=== PATIENT | male | born 1955 | race Caucasian/White ===

== ENCOUNTER 2016-09-08 19:28 | Emergency (ER) | payer OTHER ==
[~2016-09-08] VITALS: Ht 188 cm; Wt 102.0 kg
[2016-09-08 19:31] VITALS: BP 152/88; PULSE 84; RESP 16; O2SAT 96
--- NOTE | 2016-09-08 21:59 | ED.REPORT ---
HPI-Dizziness / Weakness Date of Service Sep 08, 2016 ED Provider: Dr. Kapoor 61 year old male with a hx of HTN and current every day smoker presents with dizziness since yesterday. He started to feel dizzy last night while playing [employer]ING[employer]. The dizziness has been exacerbated with standing up since yesterday, but is still present at rest. His spouse states he was pale, but denies diaphoresis. He also reports associated mild nausea and blurred vision. The patient has had a lingering cough from a URI a few weeks ago. He denies palpitations, CP, fatigue, "stars in vision" and changes in appetite. Nursing Notes Stated Complaint: DIZZINESS Chief Complaint: General Complaint Nursing Notes Reviewed: Yes Allergies: Coded Allergies: No Known Allergies (Unverified Allergy, Unknown, 06/19/14) General Time Seen by MD: 21:58 Chief Complaint Dizzy Hx Obtained From: Patient, EMS Arrived By: Ambulance Onset Occurred: Yesterday Symptom Duration: Since onset Severity: Current: No pain currently Associated with: Reports: Nausea, Denies: Vomiting Exacerbated by: Positional Past Medical History Past Medical History Reports: Hypertension Past Surgical History none Smoking History Current Every Day Smoker Social History Alcohol Use: "Social" Review of Systems Constitutional: Denies: Chills, Fatigue, Fever Eyes: Reports: Blurred bilateral Respiratory: Reports: Non-productive cough, Denies: Shortness of breath Cardiovascular: Denies: Chest pain, Palpitations GI: Reports: Nausea, Denies: Anorexia, Vomiting Skin: Denies Diaphoresis, Denies Rash Neurologic: Reports: Dizziness, Denies: Change LOC Complete sys rev & neg: except as marked. Physical Exam Initial Vital Signs Vital Signs (First) Date Time Temp Pulse Resp B/P Pulse Ox O2 Delivery O2 Flow Rate FiO2 09/08/16 19:31 36.3 84 16 152/88 96 Room Air Initial VS: Reviewed, Vital signs abnormal ENT: Mucous membranes moist, Conjunctiva normal, No scleral icterus Neck: Supple, Non-tender, Full range of motion Extremities: Vascular intact, Neuro intact Skin: Warm, Dry, No cyanosis Psychiatric: Mood/affect normal, Behavior normal, Normal thought content General/Constitutional: Awake, Alert Head / Eyes: Atraumatic, Normocephalic, PERRL Respiratory / Chest: Breath sounds NL, Breath sounds = bilat, No respiratory distress, No rales, No rhonchi, No wheezing Cardiovascular: Heart rate NL, Regular rhythm, Heart sounds NL, No murmurs, Cap refill not delayed, Peripheral circulation NL Neurologic: Oriented X3, Speech NL, No motor deficits, Cerebellar NL Interpretation & Diagnostics Lab Results Interpretation Result Diagram: 09/08/16222409/08/162224 Test 09/08/16 22:25 White Blood Count 16.3th/mm3 (3.8-10.1) Red Blood Count 5.00mil/mm3 (4.40-5.80) Hemoglobin 15.9g/dL (13.8-17.2) Hematocrit 46.3% (41.0-50.0) Mean Corpuscular Volume 92.6fL (81-100) Mean Corpuscular Hemoglobin 31.8pg (27.0-35.0) Mean Corpuscular Hemoglobin Concent 34.3% (32.0-37.0) Red Cell Distribution Width 13.5% (12.3-15.4) Platelet Count 219bil/L (150-400) Neutrophils (%) (Auto) 85.8% (40-74) Lymphocytes (%) (Auto) 9.7% (14-46) Monocytes (%) (Auto) 3.5% (4-12) Eosinophils (%) (Auto) 0.4% (0-5) Basophils (%) (Auto) 0.2% (0-3) Sodium Level 137mEq/L (134-144) Potassium Level 4.5mEq/L (3.5-5.2) Chloride Level 101mEq/L (97-108) Carbon Dioxide Level 24mmol/L (18-29) Blood Urea Nitrogen 13mg/dL (8-27) Creatinine 0.85mg/dL (0.76-1.27) Estimat Glomerular Filtration Rate 97mL/min (>59) Glucose Level 213mg/dL (60-99) Calcium Level 9.1mg/dL (8.5-10.1) Magnesium Level 2.2mg/dL (1.6-2.6) Hold Jansen Top Tube Received (Received) General Lab Results Interp 1: Labs reviewed ECG Interpretation ECG Interpretation: Increased QTc Time: 22:50 Interpreted by: ED physician Normal ECG Interpretation: Normal rate (82), Normal sinus rhythm, Normal intervals X-Ray Chest Interpretation Chest Xray Interpretation: No obvious infiltrate. View: Portable, 1 view Interpretation / Wet Read by: Wet read ED physician Re-Eval/Medical Decision Med Decision/Clinical Course The patient presents with dizziness after standing. He had a recent upper respiratory infection is concerning for pneumonia however his x-rays negative. Patient may have some mild dehydration related to his hyperglycemia, he has had hyperglycemia in the past but does not have a diagnosis of diabetes. Patient is feeling improved upon discharge. The patient does have a leukocytosis but he does not have any other source of infection that would explain this. It may be related to his recent upper respiratory infection is resolving. Re-Evaluation/Progress : Time of Eval: 23:44 Patient Status: Condition improved Re-Evaluation/Progress Note: Updated pt of labs, ECG and imaging results. Discussed plan for discharge and follow up. All questions addressed. Counseled Regarding: Diagnosis, Lab results, Need for follow-up, When/why to return to ED Patient Discharge & Departure Impression: Primary Impression: Near syncope Additional Impression: Hyperglycemia Disposition: Home Discharge Condition All VS Reviewed: Yes Condition: Improved Patient Instructions: Syncope (ED) Additional Instructions: Keep your follow up appointment. At this point there are no signs of pneumonia. If you develop difficulty breathing or develop new or concerning symptoms, return for evaluation. Your glucose level was elevated today. Cut back on carbohydrate and sugar intake. You will need to talk to your doctor about this during your next appointment. Referrals: Andrew Travis DO (PCP) Scribe Attestation Portions of this note were transcribed by Hali Elder. I, (Dr. Kapoor) personally performed the history, physical exam and medical decision-making; I reviewed and confirmed the accuracy of the information in the transcribed note. Signed by: Hali Elder. 09/08/2016, 2251 Andrew Travis Jena M MD Sep 08, 2016 21:59 Hali Elder Sep 08, 2016 22:14
[2016-09-08] MEDS ORDERED: 0.9% Sodium Chloride 1,000 ML IV ONE (22:00)
[2016-09-08 22:31] LABS: BASOPHILS % (AUTO) 0.2 % (0-3); EOSINOPHILS % (AUTO) 0.4 % (0-5); MONOCYTES % (AUTO) 3.5 % (4-12); Mean Corpuscular Hemoglobin 31.8 pg (27.0-35.0); Mean Corpuscular Volume 92.6 fL (81-100); NEUTROPHILS % (AUTO) 85.8 % (40-74); Platelet Count 219 bil/L (150-400)
[2016-09-08 22:41] VITALS: BP_SYST 157; BP_SYST 173; BP_SYST 178; BP_DIAS 108; BP_DIAS 116; BP_DIAS 87; PULSE 84; PULSE 85; PULSE 90; O2SAT 97; O2SAT 98
[2016-09-08 22:53] LABS: Magnesium 2.2 mg/dL (1.6-2.6)
[2016-09-09 00:16] VITALS: BP 159/99; PULSE 74; RESP 20; O2SAT 97
--- NOTE | 2016-09-09 08:35 | DRSVH ---
PROCEDURE: X-RAY CHEST ONE VIEW, PORTABLE ([id number]) INDICATIONS: cough TECHNIQUE: One view of the chest was acquired. COMPARISON: None. FINDINGS: Surgical changes and devices: None. Lungs and pleura: No pleural effusions or pneumothorax. Lungs are clear. Mediastinum: Mediastinal contours appear normal. Heart size is normal. Bones and chest wall: No suspicious bony lesions. Overlying soft tissues appear unremarkable. IMPRESSION: No acute process. Dictated by: Jaya Clay M.D. on 09/09/2016 at 8:32 Approved by: Jaya Clay M.D. on 09/09/2016 at 8:32
== END 2016-09-09 00:20 | disposition home or self-care (01) ==
LOC: EDBD 19:28 → SED 19:28
DX: R55 Syncope and collapse (principal); R73.9 Hyperglycemia, unspecified; I10 Essential (primary) hypertension; F17.210 Nicotine dependence, cigarettes, uncomplicated
CPT/HCPCS: 36415; 71010; 80048; 83735; 85025; 93005; 96360; 99285; J7030